=== PATIENT | female | born 1970 | race Caucasian/White ===

== ENCOUNTER 2017-03-08 02:53 | Emergency (ER) | payer OTHER ==
[2017-03-08 03:07] VITALS: BP 154/85
[2017-03-08] MEDS ORDERED: Ketorolac 30 MG/ML SDV IVPUSH ONE (03:20)
--- NOTE | 2017-03-08 03:33 | EDM.PDOC ---
ED HPI GENERAL MEDICAL PROBLEM - General Chief Complaint: Abdominal Pain Stated Complaint: KIDNEY STONES, BACK PAIN AND ABDOMINAL PAIN Time Seen by Provider: 03/08/17 02:55 Source of Information: Reports: Patient History Limitations: Reports: No Limitations - History of Present Illness INITIAL COMMENTS - FREE TEXT/NARRATIVE: HISTORY AND PHYSICAL: History of present illness: [46-year-old female with a history kidney stones most recent CAT scan months ago now presents to the emergency department complaining of renal colic with left flank pain radiating anteriorly. Patient denies abdominal pain. Pain is not worse with movement. There is no position that leaves the pain when she has an attack of it. She has no fevers chills sweats or shaking chills. She's had no dysuria or prodromal symptoms. Patient has not been ill prior to the sudden onset of this left flank pain. She is quite sure she has a kidney stone.] Review of systems: As per history of present illness and below otherwise all systems reviewed and negative. Past medical history: As per history of present illness and as reviewed below otherwise noncontributory. Surgical history: As per history of present illness and as reviewed below otherwise noncontributory. Social history: No reported history of drug or alcohol abuse. Family history: As per history of present illness and as reviewed below otherwise noncontributory. Physical exam: Alert no acute distress left CVA tenderness, benign abdomen and pelvis well-appearing patient otherwise unremarkable exam HEENT: Atraumatic, normocephalic, pupils reactive, negative for conjunctival pallor or scleral icterus, mucous membranes moist, throat clear, neck supple, nontender, trachea midline. Lungs: Clear to auscultation, breath sounds equal bilaterally, chest nontender. Heart: S1S2, regular, negative for clicks, rubs, or JVD. Abdomen: Soft, nondistended, nontender. Negative for masses or hepatosplenomegaly. positive left CVA tenderness Pelvis: Stable nontender. Genitourinary: Deferred. Rectal: Deferred. Extremities: Atraumatic, negative for cords or calf pain. Neurovascular unremarkable. Neuro: Awake, alert, oriented. . Exam nonfocal. Diagnostics: [CT abdomen and pelvis without contrast pending as well as full laboratory workup Therapeutics: [Toradol and IV fluids administered] Impression: [Left flank pain Left ureteral colic] Plan: [Signs and symptoms consistent with ureteral colic in a patient with a known history of the same. She is well-appearing with a benign abdomen and pelvis exam. Positive left CVA tenderness. Afebrile vital signs stable. Full workup pending] urinalysis with microscopic hematuria. Remainder of labs unremarkable. Vital signs stable. CT shows an 8 mm stone proximal left ureter. Patient is aware of critical importance of close follow-up with urology and information will be faxed to Dr. Mejias for outpatient follow-up. No further workup or treatment indicated at this time and strict return precautions given. Patient is aware that it is very unlikely that this stone could pass on its own and that if it causes significant obstruction it could cause a challenge and her kidney function on that side and even potentially a devitalized nonfunctional kidney. Definitive disposition and diagnosis as appropriate pending reevaluation and review of above. lower abdomen & back area Pain Score (Numeric/FACES): 9 - Related Data Allergies Allergy/AdvReac Type Severity Reaction Status Date / Time oxytocin [From Pitocin] Allergy Anaphylactic Verified 03/08/17 03:04 Shock Home Meds: Home Meds ALPRAZolam [Xanax] 0.25 mg PO DAILY 03/08/17 [History] traZODone 150 mg PO DAILY 03/08/17 [History] Past Medical History HEENT History: Reports: None Cardiovascular History: Reports: None Respiratory History: Reports: None Gastrointestinal History: Reports: None Genitourinary History: Reports: UTI, Recurrent [employer] History: Reports: Musculoskeletal History: Reports: None Neurological History: Reports: None Psychiatric History: Reports: Anxiety, Bipolar, Depression Endocrine/Metabolic History: Reports: None Hematologic History: Reports: None Immunologic History: Reports: None Oncologic (Cancer) History: Reports: None Dermatologic History: Reports: None - Infectious Disease History Infectious Disease History: Reports: Chicken Pox - Past Surgical History Head Surgeries/Procedures: Reports: None GI Surgical History: Reports: Other (See Below) Other GI Surgeries/Procedures: Gastric Binding Female Surgical History: Reports: Section, Other (See Below) Other Female Surgeries/Procedures: Uterine Ablation Social & Family History - Family History Family Medical History: Noncontributory - Tobacco Use Smoking Status *Q: Never Smoker - Caffeine Use Caffeine Use: Reports: Coffee, Soda - Recreational Drug Use Recreational Drug Use: No ED ROS GENERAL - Review of Systems Review Of Systems: See Below (History of present illness) ED EXAM, GENERAL - Physical Exam Exam: See Below (History of present illness) Course - Vital Signs Last Recorded V/S: Last Vital Signs Temp 36.1 C 03/08/17 03:05 Pulse 80 03/08/17 03:05 Resp 18 03/08/17 03:05 BP 154/85 H 03/08/17 03:05 Pulse Ox 96 03/08/17 03:05 - Orders/Labs/Meds Orders: Active Orders 24 hr Category Date Time Status Abdomen Pelvis wo Cont [CT] Stat Exams 03/08/17 03:21 Taken Sodium Chloride 0.9% [Normal Saline] 1,000 ml Med 03/08/17 03:45 Active IV ASDIRECTED Peripheral IV Insertion Adult [OM.PC] Stat Oth 03/08/17 03:20 Ordered Medication Orders Sodium Chloride (Normal Saline) 1,000 mls @ 999 mls/hr IV ASDIRECTED NO Last Admin: 03/08/17 03:40 Dose: 999 mls/hr Labs: Laboratory Tests 03/08/17 03/08/17 03/08/17 Range/Units 03:15 03:40 03:40 WBC 5.33 (4.0-11.0) K/uL RBC 4.45 (4.30-5.90) M/uL Hgb 12.4 (12.0-16.0) g/dL Hct 37.1 (36.0-46.0) % MCV 83.4 (80.0-98.0) fL MCH 27.9 (27.0-32.0) pg MCHC 33.4 (31.0-37.0) g/dL RDW Std Deviation 45.2 (28.0-62.0) fl RDW Coeff of Marilee 15 (11.0-15.0) % Plt Count 288 (150-400) K/uL MPV 9.50 (7.40-12.00) fL Neut % (Auto) 67.7 (48.0-80.0) % Lymph % (Auto) 18.9 (16.0-40.0) % [place] % (Auto) 12.0 (0.0-15.0) % Eos % (Auto) 0.8 (0.0-7.0) % Baso % (Auto) 0.6 (0.0-1.5) % Neut # (Auto) 3.6 (1.4-5.7) K/uL Lymph # (Auto) 1.0 (0.6-2.4) K/uL [place] # (Auto) 0.6 (0.0-0.8) K/uL Eos # (Auto) 0.0 (0.0-0.7) K/uL Baso # (Auto) 0.0 (0.0-0.1) K/uL Nucleated RBC % 0.0 /100WBC Nucleated RBCs # 0 K/uL Sodium 138 (136-146) mmol/L Potassium 3.4 L (3.5-5.1) mmol/L Chloride 107 (98-110) mmol/L Carbon Dioxide 22 (21-31) mmol/L BUN 12 (6.0-23.0) mg/dL Creatinine 0.9 (0.6-1.5) mg/dL Est Cr Clr Drug Dosing 63.92 mL/min Estimated GFR (MDRD) > 60.0 ml/min Glucose 108 (60-110) mg/dL Calcium 9.6 (8.8-10.8) mg/dL Total Bilirubin 0.4 (0.1-1.5) mg/dL AST 18 (5-40) IU/L ALT 16 (8-54) IU/L Alkaline Phosphatase 67 (40-150) Total Protein 7.3 (6.0-8.0) g/dL Albumin 4.3 (3.5-5.0) g/dL Globulin 3.0 (2.0-3.5) g/dL Albumin/Globulin Ratio 1.4 (1.3-2.8) Lipase 27 (7-80) U/L Urine Color YELLOW Urine Appearance CLEAR Urine pH 6.0 (5.0-8.0) Ur Specific [place] >= 1.030 (1.001-1.035) Urine Protein TRACE (NEGATIVE) mg/dL Urine Glucose (UA) NEGATIVE (NEGATIVE) mg/dL Urine Ketones NEGATIVE (NEGATIVE) mg/dL Urine Occult Blood LARGE H (NEGATIVE) Urine Nitrite NEGATIVE (NEGATIVE) Urine Bilirubin NEGATIVE (NEGATIVE) Urine Urobilinogen 0.2 (<2.0) EU/dL Ur Leukocyte Esterase NEGATIVE (NEGATIVE) Urine RBC 20-30 (0-2/HPF) Urine WBC 2-4 (0-5/HPF) Ur Epithelial Cells RARE (NONE-FEW) Urine Bacteria RARE (NEGATIVE) Meds: Medications Generic Name Dose Route Start Last Admin Trade Name Mary PRN Reason Stop Dose Admin Sodium Chloride 1,000 mls @ 999 mls/hr 03/08/17 03:45 03/08/17 03:40 Normal Saline IV 999 mls/hr ASDIRECTED NO Administration Discontinued Medications Generic Name Dose Route Start Last Admin Trade Name Mary PRN Reason Stop Dose Admin Ketorolac Tromethamine 30 mg 03/08/17 03:20 03/08/17 03:40 Toradol IVPUSH 03/08/17 03:21 30 mg ONETIME ONE Administration Departure - Departure Time of Disposition: 05:20 Disposition: Home, Self-Care 01 Condition: Good Clinical Impression: Ureteral colic, Ureterolithiasis - Discharge Information Referrals: PCP,None [Primary Care Provider] - Forms: ED Department Discharge Additional Instructions: you have an 8 mm kidney stone in your left upper ureter. Is very very likely that this will not pass spontaneously. Therefore the most likely scenario is that this will require procedure to break it up and/or remove it. It's important that you follow-up with her urologist Dr. Sagar miramontes. Call the office this morning for an appointment as soon as possible. The aware that failure to follow-up could result in a blockage distention of your kidney with urine and no loss of function including potentially a complete loss of function and devitalization of the kidney. Take ibuprofen 800 mg every 6 hours and take [place] as needed for pain but do not make the mistake of thinking that her pain is controlled follow-up is not indicated as the stone will not go away without intervention. To follow-up with your DrNava and return immediately for new severe or worsening symptoms - My Orders Last 24 Hours: My Active Orders 03/08/17 03:20 Peripheral IV Insertion Adult [OM.PC] Stat 03/08/17 03:21 Abdomen Pelvis wo Cont [CT] Stat 03/08/17 03:45 Sodium Chloride 0.9% [Normal Saline] 1,000 ml IV ASDIRECTED - Assessment/Plan Last 24 Hours: My Active Orders 03/08/17 03:20 Peripheral IV Insertion Adult [OM.PC] Stat 03/08/17 03:21 Abdomen Pelvis wo Cont [CT] Stat 03/08/17 03:45 Sodium Chloride 0.9% [Normal Saline] 1,000 ml IV ASDIRECTED
[2017-03-08] MEDS ORDERED: Sodium Chloride 0.9% 1,000 ML IV SCH (03:45)
[2017-03-08 04:14] LABS: CHLORIDE,CL 107 mmol/L (98-110); SODIUM,NA 138 mmol/L (136-146)
--- NOTE | 2017-03-08 19:39 | CT ---
EXAM DATE: 03/08/17 PATIENT'S AGE: 46 Patient: MILI WISE Facility: [place], [place] Site . Site : 1970 Study: CT Abdomen/Pelvis [id number]/4/[id number] 4:38:24 AM Ordering Physician: Spenser Quick Final Report: INDICATION: Abdominal pain TECHNIQUE: CT abdomen and pelvis without contrast. COMPARISON: None FINDINGS: Lower chest: Small to moderate-sized hiatal hernia. Liver: Unremarkable. Spleen: Unremarkable. Pancreas: Unremarkable. Gallbladder and bile ducts: Unremarkable. Adrenal glands: Unremarkable. Kidneys: There is moderate left hydronephrosis secondary to a 0.8 cm stone in the proximal left ureter. Additional left renal stones are seen, the largest measuring 0.6 cm in diameter. There are also right-sided renal stones, the largest measuring 0.4 cm in diameter. There is no right-sided hydronephrosis. GI tract: Postsurgical changes in the stomach. Appendix is normal. Vascular structures: Unremarkable. Lymph nodes: Unremarkable. Miscellaneous: Unremarkable. No free air or significant free fluid. Pelvic Organs: Unremarkable. Bones: Unremarkable for age. IMPRESSION: Moderate left hydronephrosis secondary to a 0.8 cm stone in the proximal left ureter. Additional left renal stones are also seen. Nonobstructive right nephrolithiasis. Small to moderate-sized hiatal hernia. Postsurgical changes seen in the stomach. Please note that all CT scans at this facility use dose modulation, iterative reconstruction, and/or weight-based dosing when appropriate to reduce radiation dose to as low as reasonably achievable. Dictated by Shala Lind MD @ Mar 08 2017 4:55AM (Electronic Signature) Report Signed by Proxy. [facility]ENTERMojgan
== END 2017-03-08 05:51 | disposition home or self-care (01) ==
LOC: MW.ED 02:53
DX: N13.2 Hydronephrosis with renal and ureteral calculous obstruction (principal); F41.9 Anxiety disorder, unspecified; F32.9 Major depressive disorder, single episode, unspecified; Z88.8 Allergy status to other drugs, medicaments and biological substances; Z79.899 Other long term (current) drug therapy; Z87.440 Personal history of urinary (tract) infections
CPT/HCPCS: 74176; 80053; 81001; 83690; 85025; 96361; 96374; 99284; J1885; J7040